=== PATIENT | female | born 1965 | race Caucasian/White ===

== ENCOUNTER → 2018-02-22 | Outpatient (CLI) | payer BC ==
[~2018-02-22] MED LIST: CYC10 PO; KET10 PO; LOR5/325 PO; MULT1CAP59 PO
--- NOTE | 2018-02-22 15:17 | RADIOLOGY IMAGING REPORT ---
FACILITY: [facility] - [place] PATIENT NAME: Shea Rod : 1965 MR: [id number] V: [id number] EXAM DATE: ORDERING PHYSICIAN: TRISTIN DIAMOND TECHNOLOGIST: [place] [facility] [place] Shea Rod : 1965 Visit/Account:[id number] Date of Sevice: 02/22/2018 DEXA Scan Clinical history: Screening. Comparison: None available. LUMBAR SPINE: The bone mineral density (BMD) measured from L1-L4 correlates with a Z-score 0.6 and a T-score of -1. 1 which is osteopenia as defined by the World Health Organization. The corresponding risk of fractur e in the lumbar spine is 2-3 times increased compared with a young adult reference population. HIP: Bone mineral density (BMD) measured in the Left total hip region correlates with a Z-score -0.4 and a T-score of x1 which is normal as defined by the World Health Organization. The corresponding risk o f fracture in the hip is 2 times increased compared with a young adult reference population. T scor e left femoral neck -1.4 Bone mineral density (BMD) measured in the Femoral Neck region measures 0.848 g/cm2. Impression: 1. Lumbar spine: Stepanian. 2. Left Hip: Normal. 3. Femoral Neck: Bone Mineral Density is 0.848 g/cm2 The next DEXA scan of this patient should include the following sites: L1-L4 and the left hip. FRAX? WHO Fracture Risk Assessment Tool link: <http://www.shef.ac.uk/FRAX/tool.jsp?locationValue=9> PLEASE NOTE: 1) The World Health Organization defines low BMD as follows: T-score Normal > -1 Osteopenia < -1 and > -2.5 Osteoporosis < -2.5 without fractures Established osteoporosis < -2.5 with fractures 2) In general, you may wish to consider: Diagnosis Treatment Follow-up DEXA Normal BMD Prevention 2-3 years Osteopenia Prevention/therapy 1-2 years Osteoporosis Therapy Yearly 3) Fracture risk estimated from the T-score is more accurate for vertebral fractures (often spontane ous) than for hip fractures. Report Dictated By: Cher Aiken MD at 02/22/2018 3:10 PM Report E-Signed By: Cher Aiken MD at 02/22/2018 3:11 PM WSN:[email or web address]
--- NOTE | 2018-02-22 17:55 | RADIOLOGY IMAGING REPORT ---
FACILITY: [facility] - [place] PATIENT NAME: NINOSKA COTA : [id number] MR: [id number] V: [id number] EXAM DATE: [id number] ORDERING PHYSICIAN: TRISTIN DIAMOND TECHNOLOGIST: Vi Santizo PROCEDURE:BILATERAL DIAGNOSTIC DIGITAL MAMMOGRAM WITH CAD ASSISTED INTERPRETATION & 3D TOMOSYNTHESIS COMPARISON:Prior mammogram 08/03/16. INDICATIONS:6 MO F/U FINDINGS: Dense heterogeneous fibroglandular tissue is seen throughout the breasts. The parenchymal pattern has remained stable allowing for difference in mammographic technique & patient positioning. Numerous rounded ovoid calcifications are again seen in the anterior 1/3 of both breasts. Given the difference in imaging technique sense prior mammogram a 6 month follow-up bilateral mammogram is recommended to document stability of the parenchymal pattern and the calcifications unless clinical findings warrant more immediate attention. DIAGNOSTIC CATEGORY 3--PROBABLY BENIGN FINDING. RECOMMENDATIONS: SIX MONTH FOLLOW-UP DIAGNOSTIC MAMMOGRAM: BILATERAL BREASTS. IMPRESSION: BIRADS 3: Probably benign finding. A 6 month follow-up bilateral mammogram is recommended as described. Dictated by: Cher Aiken M.D. on 02/22/2018 at 11:20 Transcribed by: ZAC on 02/22/2018 at 11:46 Approved by: Cher Aiken M.D. on 02/22/2018 at 17:54 [facility]
== END ==
LOC: MAMO 01:33
PROVIDERS: ATTEND Nurse Practitioner Psychiatric/Mental Health
DX: Z00.00 Encounter for general adult medical examination without abnormal findings (principal); Z12.31 Encounter for screening mammogram for malignant neoplasm of breast; R92.1 Mammographic calcification found on diagnostic imaging of breast
CPT/HCPCS: 77062; 77066; 77080

== ENCOUNTER → 2018-04-05 | Outpatient (CLI) | payer BC ==
--- NOTE | 2018-04-05 14:50 | RADIOLOGY IMAGING REPORT ---
FACILITY: [facility] PATIENT NAME: Shea Rod : 1965 MR: [id number] V: [id number] EXAM DATE: ORDERING PHYSICIAN: KEREN FREED TECHNOLOGIST: Location: [facility] Patient: Shea Rod : 1965 Visit/Account:[id number] Date of Sevice: 04/05/2018 TRANSVAGINAL NON-OB HISTORY: TECHNIQUE: Transvaginal ultrasound pelvis. COMPARISON: None. FINDINGS: Uterus: ; 9.5 cm length x 4.2 cm AP x 4.3 cm transverse. Myometrium: Unremarkable. Endometrium: The IUD is located low partially within the lower endometrial canal and partially within the endocervical canal double thickness 2.1 mm. Cervix: IUD appears to be partially within the endocervical canal. Ovaries: Right - 1.6 x 1.9 x 1.4 cm. There is a 1.4 cm simple cyst Left - not visualized Blood flow is documented in each ovary by duplex Doppler ultrasound. Adnexa: There are prominent adnexal vessels bilaterally. Free pelvic fluid: None. IMPRESSION: IUD appears to be located low, partially within the lower endometrial canal partially within the endo cervical canal. 1.4 cm simple cyst in the right ovary Left ovary not visualized Prominent adnexal vessels bilaterally Report Dictated By: Cher Aiken MD at 04/05/2018 2:24 PM Report E-Signed By: Cher Aiken MD at 04/05/2018 2:46 PM WSN:[email or web address]
== END ==
LOC: US 00:43
PROVIDERS: ATTEND Nurse Practitioner Family
DX: Z30.431 Encounter for routine checking of intrauterine contraceptive device (principal); N93.9 Abnormal uterine and vaginal bleeding, unspecified; N83.201 Unspecified ovarian cyst, right side
CPT/HCPCS: 76830